=== PATIENT | female | born 1945 | race Caucasian/White ===

== ENCOUNTER 2017-10-07 19:08 | Observation (INO) | payer MEDICARE ==
[~2017-10-07] VITALS: Ht 167.6 cm; Wt 72.1 kg
[~2017-10-07 19:08] MED LIST: CRESTOR5 MG PO; LUMIGAN2.5 M1 OU; METOPROLOL TART25 MG PO; TEMAZEPAM15 MG PO; XARELTO20 MG PO; [UNRECOGNIZED DRUG - OTHER] OU
[2017-10-07 19:47] LABS: BASOPHILS % 0.7 % (0.0-1.0); EOSINOPHILS # (AUTO) 0.7 (0.0-0.4); EOSINOPHILS % 11.3 % (0.0-6.0); HEMATOCRIT 40.4 % (34.2-44.1); HEMOGLOBIN 13.4 g/dL (12.0-16.0); LYMPHOCYTES # (AUTO) 1.8 (1.0-3.2); LYMPHOCYTES % 30.5 % (18.0-39.1); MEAN CORPUSCULAR HEMOGLOBIN 30.4 pg (28-32); MEAN CORPUSCULAR HGB CONC 33.2 g/dL (31-35); MEAN CORPUSCULAR VOLUME 91.6 fL (81-99); MONOCYTES # (AUTO) 0.6 (0.2-0.8); MONOCYTES % 9.8 % (4.4-11.3); NEUTROPHILS # (AUTO) 2.8 (2.1-6.9); NEUTROPHILS % 47.4 % (38.7-80.0); PLATELET COUNT 258 x10e3/uL (140-360); RED BLOOD COUNT 4.41 x10e6/uL (3.6-5.1); RED CELL DISTRIBUTION WIDTH 12.4 % (11.7-14.4)
[2017-10-07 20:10] LABS: ALANINE AMINOTRANSFERASE 21 IU/L (0-55); ALBUMIN/GLOBULIN RATIO 1.3 (0.8-2.0); ALKALINE PHOSPHATASE 47 IU/L (40-150); BLOOD UREA NITROGEN 19 mg/dL (7-26); BUN/CREATININE RATIO 23 (6-25); CALCIUM 9.8 mg/dL (8.4-10.2); CARBON DIOXIDE 28 mmol/L (22-29); CHLORIDE 104 mmol/L (98-107); CREATINE KINASE 63 IU/L (29-168); CREATININE, SERUM 0.82 mg/dL (0.57-1.11); EST GLOMERULAR FILTRATION RATE > 60 ML/MIN (60-); GLUCOSE 100 mg/dL (74-118); SODIUM 142 mmol/L (136-145)
--- NOTE | 2017-10-07 20:29 | Diagnostic Imaging Report ---
Examination: CT head without contrast Clinical Indication: Temporary loss of vision; generalized weakness. Technique: Transaxial noncontrast images from the skull base through the vertex were obtained. Sagittal and coronal reformatted images were done. Comparison: None. Findings: Scalp: No abnormalities. Bones: Intact. No fractures. No blastic or lytic lesions. Brain sulci: Appropriate for patient's age. Ventricles: Normal in size and configuration. No hydrocephalus. . Extra-axial space: No abnormalities. Parenchyma: There are mild confluent areas of low-attenuation within subcortical and periventricular white matter, nonspecific, but could represent microvascular ischemic disease. No masses, hemorrhage, or acute or chronic cortical based vascular insults. Suprasellar region: No abnormalities. Craniocervical junction: The foramen magnum is patent. No Chiari one malformation. Impression: 1. No acute intracranial finding. 2. Mild chronic microvascular ischemic change. Signed by: Dr. Lynn Pinedo M.D. on 10/07/2017 8:26 PM
[2017-10-07 20:44] LABS: BILIRUBIN,URINE NEGATIVE (NEGATIVE); CLARITY,URINE CLEAR (CLEAR); COLOR,URINE YELLOW (YELLOW); KETONES,URINE NEGATIVE (NEGATIVE); LEUKOCYTE ESTERASE ,URINE NEGATIVE (NEGATIVE); NITRITE,URINE NEGATIVE (NEGATIVE); PROTEIN,URINE DIPSTICK NEGATIVE (NEGATIVE); URINE UROBILINOGEN 0.2 mg/dL (0.2 - 1)
--- NOTE | 2017-10-07 20:49 | Diagnostic Imaging Report ---
EXAMINATION: CHEST SINGLE (PORTABLE) INDICATION: \S\sob \[id number] \S\2010 \S\Y COMPARISON: Chest radiograph 04/27/2015 FINDINGS: AP view TUBES and LINES: None. LUNGS: Lungs are well inflated. Lungs are clear. There is no evidence of pneumonia or pulmonary edema. PLEURA: No pleural effusion or pneumothorax. HEART AND MEDIASTINUM: The cardiomediastinal silhouette is unremarkable. BONES AND SOFT TISSUES: No acute osseous lesion. Loop recorder projects over the left lower chest. UPPER ABDOMEN: No free air under the diaphragm. IMPRESSION: No acute thoracic abnormality. Signed by: DR. Zachariah Wagner MD on 10/07/2017 8:45 PM
[2017-10-07 20:57] LABS: EPITHELIAL CELLS,URINE FEW /LPF; MUCUS,URINE FEW (RARE); RBC,URINE 0-5 /HPF (0-5); WBC,URINE (MAN) 0-5 /HPF (0-5)
[2017-10-07] MEDS ORDERED: ASPIRIN 81 MG CHEW TAB PO STA (21:06)
[2017-10-07] MEDS ORDERED: ASPIRIN 81 MG ENTERIC COATED PO ONE (21:09)
[2017-10-07] MEDS ORDERED: SODIUM CHLORIDE FLUSH 10 ML SYR INJ PRN (21:15)
[2017-10-07] MEDS ORDERED: ONDANSETRON HCL INJ 2 MG/ML VIAL IV PRN (21:15)
[2017-10-07] MEDS ORDERED: ASPIRIN CHEW81 MG PO (21:18)
[2017-10-07] MEDS ORDERED: CRESTOR10 MG PO ×2 (21:22)
[2017-10-07 22:00] VITALS: BP 155/109
[2017-10-07 22:29] VITALS: BP_SYST 109
[2017-10-07 22:30] VITALS: BP 155/109
[2017-10-08 00:03] VITALS: BP 130/88
[2017-10-08 05:17] LABS: BASOPHILS # (AUTO) 0.1 (0.0-0.1); EOSINOPHILS # (AUTO) 0.7 (0.0-0.4); EOSINOPHILS % 14.3 % (0.0-6.0); HEMATOCRIT 37.8 % (34.2-44.1); HEMOGLOBIN 12.8 g/dL (12.0-16.0); LYMPHOCYTES # (AUTO) 2.2 (1.0-3.2); LYMPHOCYTES % 43.7 % (18.0-39.1); MEAN CORPUSCULAR HEMOGLOBIN 30.7 pg (28-32); MEAN CORPUSCULAR HGB CONC 33.9 g/dL (31-35); MEAN CORPUSCULAR VOLUME 90.6 fL (81-99); MONOCYTES # (AUTO) 0.6 (0.2-0.8); MONOCYTES % 11.5 % (4.4-11.3); NEUTROPHILS # (AUTO) 1.5 (2.1-6.9); NEUTROPHILS % 29.1 % (38.7-80.0); PLATELET COUNT 219 x10e3/uL (140-360); RED BLOOD COUNT 4.17 x10e6/uL (3.6-5.1); RED CELL DISTRIBUTION WIDTH 12.4 % (11.7-14.4)
[2017-10-08 05:53] LABS: ALANINE AMINOTRANSFERASE 18 IU/L (0-55); ALBUMIN 3.4 g/dL (3.5-5.0); ALBUMIN/GLOBULIN RATIO 1.3 (0.8-2.0); ALKALINE PHOSPHATASE 41 IU/L (40-150); BLOOD UREA NITROGEN 17 mg/dL (7-26); BUN/CREATININE RATIO 23 (6-25); CALCIUM 9.1 mg/dL (8.4-10.2); CARBON DIOXIDE 26 mmol/L (22-29); CHLORIDE 107 mmol/L (98-107); CHOL/HDL RATIO 3.5 (3.0-3.6); CHOLESTEROL 190 MD/DL (0-199); CREATINE KINASE 46 IU/L (29-168); CREATININE, SERUM 0.74 mg/dL (0.57-1.11); EST GLOMERULAR FILTRATION RATE > 60 ML/MIN (60-); GLUCOSE 101 mg/dL (74-118); HDL CHOLESTEROL 54 MG/DL (40-60); LDL CHOLESTEROL 100 MG/DL (60-130); SODIUM 140 mmol/L (136-145); TRIGLYCERIDES 178 MG/DL (0-149)
[2017-10-08 07:37] VITALS: BP 142/84
[2017-10-08 07:51] VITALS: BP 142/84
[2017-10-08] MEDS ORDERED: ASPIRIN 81 MG ENTERIC COATED PO SCH (09:00)
[2017-10-08] MEDS ORDERED: ASPIRIN 81 MG CHEW TAB PO SCH (10:20)
--- NOTE | 2017-10-08 14:30 | History and Physical ---
SHORTSTAY SUMMARY PRIMARY CARE PROVIDER: Dr. Rina Clemons who does not come here. CHIEF COMPLAINT: Transient loss of vision. HISTORY OF PRESENT ILLNESS: Ms. Turpin is a 72-year-old lady who had been out doing a lot of walking, came home, was a little bit tired and sat down in a chair and was sitting there for a couple of hours resting when all of a sudden she felt a very sharp electrical pain shooting through her head and had a transient loss of vision for about a minute or so, both resolved within a minute or so and the patient was asymptomatic following that, but came to the emergency room for evaluation. REVIEW OF SYSTEMS: She denies fever, chills, or weight loss. She denies sinus congestion or sore throat. She denies chest pain or palpitations. She wears an event monitor for paroxysmal atrial fib, but denies any palpitations at the time of this event. She denies shortness breath, wheezing, or cough. She denies abdominal pain, nausea, vomiting, or melena. She denies dysuria or flank pain. She denies rash or pruritus. She denies joint pain or swelling. She had a severe sharp stabbing headache at the time of loss of vision. She denied vertigo. She denied loss of consciousness. She denied depression, agitation, homicidal, or suicidal ideation. PAST MEDICAL HISTORY: Significant for hypertension, hypercholesterolemia and paroxysmal atrial fibrillation. She had been in the past on metoprolol and Xarelto. She had an event monitor that showed her not to have any AFib for a long time. She was taken off the Xarelto and metoprolol and is currently on no blood pressure medication. MEDICATIONS: He regular medications include aspirin 81 mg daily, Lumigan eye drops for glaucoma, Crestor 5 mg daily, and temazepam 15 mg at bedtime as needed. PAST SURGICAL HISTORY: She has a distant history of hysterectomy. She quit smoking in 1988. ALLERGIES: SHE HAS A STATED ALLERGY TO CODEINE. FAMILY HISTORY: Remarkable for hypertension. SOCIAL HISTORY: The patient is . Swedish is her primary language. She does not smoke, drink or use illegal drugs and she is generally independently functioning. PHYSICAL EXAM PSYCHIATRIC: She is awake, alert, oriented x3 with normal mood and affect. She has a normal body habitus. Is in no acute distress. VITAL SIGNS: Blood pressure 142/84, pulse 57 and regular, respiratory rate 16, O2 sat 98%, temperature 97.1. HEENT: Her head is atraumatic. Her eyes are anicteric with clear conjunctiva. Her ears and nares are without erythema or discharge. Oropharynx is clear. NECK: Supple with no mass or thyromegaly. LYMPHATIC: She has no palpable cervical, axillary, or inguinal adenopathy. CARDIOVASCULAR: Her heart has a regular rate and rhythm without murmur or extra heart sounds. She has no carotid bruit. She has no peripheral edema. She has palpable dorsal pedal pulses. RESPIRATORY: Lungs are clear to auscultation and percussion with normal respiratory effort. GASTROINTESTINAL: Abdomen is soft without organomegaly, masses, or tenderness. She has normal bowel sounds present. CUTANEOUS: Her skin is warm and dry to touch with no rash or skin breakdown. MUSCULOSKELETAL: Her joints are in normal alignment without erythema or swelling. She has no calf tenderness. NEUROLOGIC: Nonfocal with intact cranial nerves and no motor or sensory deficits. DIAGNOSTIC STUDIES: CT scan of the brain shows no acute findings, does show some microvascular changes. The chest x-ray shows no acute disease. CBC shows a white count of 4.97 with a normal differential, hemoglobin 12.8, hematocrit 37.8, platelet count 219,000. Chemistry shows normal electrolytes, CO2 of 26, creatinine 0.74, BUN 17 for a normal GFR, glucose 101. Transaminases, bilirubin, and alk phos were all normal. She had carotid Dopplers that showed some plaque at the bulb and internal carotid artery, but not hemodynamically significant. IMPRESSIO AND PLAN 1. Transient ischemic attack/amaurosis fugax. Symptoms have resolved. CT scan is negative. Cannot do an MRI scan. Carotid Doppler shows non-hemodynamically significant plaque at the bulb and the internal carotid artery, which warrants continued medical management with statins and aspirin. 2. Paroxysmal atrial fibrillation. The patient currently is in normal sinus rhythm and has an implanted event monitor, which precludes doing an MRI scan. 3. Hypertension. We will monitor for now. The patient has not been on any medications recently. 4. For prophylaxis. the patient received Pepcid for gastrointestinal prophylaxis. HOSPITAL COURSE: The patient was admitted to the floor overnight. Her symptoms did not return. She was asymptomatic, feeling well with normal vital signs. The following morning, lab work was all normal. CT negative carotids with no interventional lesions. The patient was discharged home because of the negative workup, to follow up with her PCP. She was instructed to continue her aspirin and her statin and will need to have the carotid disease followed by her PCP as an outpatient. She can resume regular activity and cardiac diet and follow up with her PCP within 2 weeks. Job#: [id number] SKI
== END 2017-10-08 12:38 | disposition home or self-care (01) ==
LOC: ER 19:08 → ERHOLD 21:11 → IMCU 21:46
PROVIDERS: ADMIT Internal Medicine; ATTEND Internal Medicine
DX: G45.9 Transient cerebral ischemic attack, unspecified (principal); G45.3 Amaurosis fugax; I48.0 Paroxysmal atrial fibrillation; I10 Essential (primary) hypertension; E78.00 Pure hypercholesterolemia, unspecified; Z87.891 Personal history of nicotine dependence; Z88.5 Allergy status to narcotic agent
CPT/HCPCS: 36415 ×2; 70450; 71045; 80053 ×2; 80061; 81001; 82550 ×2; 82553 ×2; 84484 ×2; 85025 ×2; 93005; 93880; 99284; G0378 ×2

== ENCOUNTER 2021-12-18 21:12 | Emergency (ER) | payer MEDICARE ==
[~2021-12-18] VITALS: Ht 167.6 cm; Wt 67.1 kg
[~2021-12-18 21:12] MED LIST changes: +ASPIRIN CHEW81 MG PO; +CRESTOR10 MG PO
[2021-12-18 21:49] LABS: BASOPHILS % 0.6 % (0.0-1.0); EOSINOPHILS # (AUTO) 0.5 (0.0-0.4); EOSINOPHILS % 7.2 % (0.0-6.0); HEMATOCRIT 40.9 % (34.2-44.1); HEMOGLOBIN 13.5 g/dL (12.0-16.0); LYMPHOCYTES # (AUTO) 2.7 (1.0-3.2); LYMPHOCYTES % 37.9 % (18.0-39.1); MEAN CORPUSCULAR HEMOGLOBIN 31.4 pg (28-32); MEAN CORPUSCULAR VOLUME 95.1 fL (81-99); MONOCYTES # (AUTO) 0.8 (0.2-0.8); MONOCYTES % 11.2 % (4.4-11.3); NEUTROPHILS # (AUTO) 3.1 (2.1-6.9); PLATELET COUNT 223 x10e3/uL (140-360); RED CELL DISTRIBUTION WIDTH 12.2 % (11.7-14.4)
[2021-12-18 22:23] LABS: ALANINE AMINOTRANSFERASE 20 IU/L (0-55); ALBUMIN/GLOBULIN RATIO 1.3 (0.8-2.0); ALKALINE PHOSPHATASE 57 IU/L (40-150); BLOOD UREA NITROGEN 24 mg/dL (7-26); BUN/CREATININE RATIO 27 (6-25); CALCIUM 9.6 mg/dL (8.4-10.2); CARBON DIOXIDE 25 mmol/L (22-29); CHLORIDE 103 mmol/L (98-107); CREATINE KINASE 107 IU/L (29-168); CREATININE, SERUM 0.89 mg/dL (0.57-1.11); GLUCOSE 108 mg/dL (74-118); SODIUM 140 mmol/L (136-145)
[2021-12-18 22:53] LABS: CLARITY,URINE CLEAR (CLEAR); COLOR,URINE YELLOW (YELLOW); KETONES,URINE NEGATIVE (NEGATIVE); LEUKOCYTE ESTERASE ,URINE NEGATIVE (NEGATIVE); NITRITE,URINE NEGATIVE (NEGATIVE); PROTEIN,URINE DIPSTICK NEGATIVE (NEGATIVE); URINE UROBILINOGEN 0.2 mg/dL (0.2 - 1)
[2021-12-18 22:58] LABS: BACTERIA,URINE FEW /HPF; EPITHELIAL CELLS,URINE FEW /LPF; RBC,URINE 0-5 /HPF (0-5); WBC,URINE (MAN) 0-5 /HPF (0-5)
== END 2021-12-18 23:22 | disposition home or self-care (01) ==
LOC: ER 21:18
DX: R00.2 Palpitations (principal); I49.1 Atrial premature depolarization; I10 Essential (primary) hypertension; I48.91 Unspecified atrial fibrillation; H40.9 Unspecified glaucoma; R94.31 Abnormal electrocardiogram [ECG] [EKG]
CPT/HCPCS: 36415; 71045; 80053; 81001; 82550; 82553; 84484; 85025; 93005; 99284

== ENCOUNTER 2023-02-06 23:00 | Emergency (ER) | payer MEDICARE ==
[~2023-02-06] VITALS: Ht 167.6 cm; Wt 70.3 kg
[~2023-02-06 23:00] MED LIST changes: +AUGMENTIN 500-1 EACH PO; +KETOROLAC TROME10 MG PO; +ONDANSETRON ODT4 MG PO; +PAXLOVID 300-11 EACH PO
[2023-02-06 23:26] LABS: BASOPHILS % 0.7 % (0.0-1.0); EOSINOPHILS # (AUTO) 0.5 (0.0-0.4); EOSINOPHILS % 8.6 % (0.0-6.0); HEMATOCRIT 43.1 % (34.2-44.1); HEMOGLOBIN 14.5 g/dL (12.0-16.0); LYMPHOCYTES # (AUTO) 1.9 (1.0-3.2); LYMPHOCYTES % 33.5 % (18.0-39.1); MEAN CORPUSCULAR HEMOGLOBIN 31.3 pg (28-32); MEAN CORPUSCULAR HGB CONC 33.6 g/dL (31-35); MEAN CORPUSCULAR VOLUME 93.1 fL (81-99); MONOCYTES # (AUTO) 0.6 (0.2-0.8); NEUTROPHILS # (AUTO) 2.6 (2.1-6.9); PLATELET COUNT 242 x10e3/uL (140-360); RED BLOOD COUNT 4.63 x10e6/uL (3.6-5.1); RED CELL DISTRIBUTION WIDTH 12.5 % (11.7-14.4); WHITE BLOOD COUNT 5.59 x10e3/uL (4.8-10.8)
[2023-02-06 23:43] LABS: ALANINE AMINOTRANSFERASE 23 IU/L (0-55); ALBUMIN 4.4 g/dL (3.5-5.0); ALBUMIN/GLOBULIN RATIO 1.2 (0.8-2.0); ALKALINE PHOSPHATASE 50 IU/L (40-150); ANION GAP 15.5 mmol/L (8-16); BILIRUBIN,TOTAL 1.1 mg/dL (0.2-1.2); BLOOD UREA NITROGEN 19 mg/dL (7-26); BUN/CREATININE RATIO 21 (6-25); CARBON DIOXIDE 27 mmol/L (22-29); CHLORIDE 101 mmol/L (98-107); CREATINE KINASE 101 IU/L (29-168); CREATININE, SERUM 0.92 mg/dL (0.57-1.11); EST GLOMERULAR FILTRATION RATE 64 ML/MIN (>=60); GLUCOSE 95 mg/dL (74-118); POTASSIUM 3.5 mmol/L (3.5-5.1); SODIUM 140 mmol/L (136-145); TOTAL PROTEIN 8.2 g/dL (6.5-8.1)
[2023-02-06 23:54] LABS: TROPONIN I < 0.001 ng/mL (0-0.300)
[2023-02-07 00:04] LABS: BILIRUBIN,URINE NEGATIVE (NEGATIVE); CLARITY,URINE CLEAR (CLEAR); COLOR,URINE YELLOW (YELLOW); GLUCOSE, URINE NEGATIVE (NEGATIVE); KETONES,URINE NEGATIVE (NEGATIVE); LEUKOCYTE ESTERASE ,URINE NEGATIVE (NEGATIVE); NITRITE,URINE NEGATIVE (NEGATIVE); PH,URINE 5.5 (5 - 7); PROTEIN,URINE DIPSTICK NEGATIVE (NEGATIVE); URINE UROBILINOGEN 0.2 mg/dL (0.2 - 1)
[2023-02-07 00:05] LABS: BACTERIA,URINE MODERATE /HPF; EPITHELIAL CELLS,URINE MODERATE /LPF; MUCUS,URINE FEW (RARE); RBC,URINE 0-5 /HPF (0-5); WBC,URINE (MAN) 0-5 /HPF (0-5)
[2023-02-07 03:25] VITALS: O2SAT 98
== END 2023-02-07 03:25 | disposition home or self-care (01) ==
LOC: ER 23:08
DX: R42 Dizziness and giddiness (principal); I10 Essential (primary) hypertension; I48.91 Unspecified atrial fibrillation; E78.5 Hyperlipidemia, unspecified; F41.9 Anxiety disorder, unspecified; H40.9 Unspecified glaucoma; R94.31 Abnormal electrocardiogram [ECG] [EKG]
CPT/HCPCS: 36415; 70496; 70498; 71045; 80053; 81001; 82550; 83880; 84484; 85025; 93005; 99284